=== PATIENT | female | born 1975 | race Caucasian/White ===

== ENCOUNTER 2020-08-01 09:44 | Emergency (ER) | payer MEDICAID ==
[~2020-08-01] VITALS: Ht 152.4 cm; Wt 64.0 kg
[2020-08-01 09:47] VITALS: BP 116/57
--- NOTE | 2020-08-01 10:10 | NUR ---
44 YO/F PRESENTS TO ED FOR RUQ ABD PAIN THAT RADIATES TO BACK 10/10 ACCOMPANIED BY NAUSEA AND SOB X 3 DAY. PT REPORTS THIS HAPPENED AFTER CONSUMING 6 BEERS ON THURSDAY. DENIES SICK CONTACTS. DENIES FEVER, DIARRHEA OR CONSTIPATION. PT REPORTS PAINFUL URINATION X 1 MONTH. IN ED, VSS. CLEAR BREATH SOUNDS ON ALL LUNG PALMER. ABDOMEN, SOFT, NONTENDER. NORMOACTIVE BOWEL SOUNDS. ERMD MADE AWARE OF PT STATUS. LMP: JULY 17, 2020 [facility]- DENIES NKDA RX- TYLENOL
[2020-08-01] MEDS ORDERED: FAMOTIDINE 20 MG TAB PO ONE (10:15)
[2020-08-01] MEDS ORDERED: KETOROLAC 60 MG/2 ML VIAL IM ONE (10:15)
[2020-08-01] MEDS ORDERED: ONDANSETRON 4 MG ODT PO ONE (10:15)
[2020-08-01 10:32] LABS: BASOPHILS % (AUTO) 0.4 % (0.0-2.0); EOSINOPHILS # (AUTO) 0.1 K/uL (0-0.4); EOSINOPHILS % (AUTO) 1.8 % (0.0-4.0); HEMATOCRIT 32.1 % (36-48); HEMOGLOBIN 10.9 g/dL (12.0-16.0); LYMPHOCYTES # (AUTO) 2.1 K/uL (2.5-16.5); LYMPHOCYTES % (AUTO) 41.6 % (20.5-51.1); MEAN CORPUSCULAR HEMOGLOBIN 26 pg (27-31); MEAN CORPUSCULAR HGB CONC 34 g/dL (33-37); MEAN CORPUSCULAR VOLUME 78.1 fL (80-94); MONOCYTES # (AUTO) 0.5 K/uL (0.8-1.0); MONOCYTES % (AUTO) 9.1 % (1.7-9.3); NEUTROPHILS # (AUTO) 2.4 K/uL (1.8-7.7); NEUTROPHILS % (AUTO) 47.1 % (42.2-75.2); PLATELET COUNT (AUTO) 225 K/uL (140-450); RED BLOOD CELL COUNT(AUTO) 4.11 MIL/uL (4.20-5.40); RED CELL DISTRIBUTION WIDTH 16.6 % (11.6-13.7)
[2020-08-01 12:10] LABS: ANION GAP 14.8 (8-16); CARBON DIOXIDE 26.6 mmol/L (21-32); POTASSIUM 3.4 mmol/L (3.5-5.1)
[2020-08-01 12:11] LABS: ALBUMIN 3.6 g/dL (3.4-5.0); CREATININE 0.5 mg/dL (0.6-1.3); TOTAL BILIRUBIN 0.5 mg/dL (0.0-1.0)
[2020-08-01 12:17] LABS: APPEARANCE,URINE CLEAR (CLEAR); BILIRUBIN,URINE NEGATIVE (NEGATIVE); BLOOD, URINE NEGATIVE (NEGATIVE); COLOR,URINE YELLOW (YELLOW); LEUKOCYTE ESTERASE ,URINE NEGATIVE (NEGATIVE); NITRITE, URINE NEGATIVE (NEGATIVE); UGLUCOSE NEGATIVE (NEGATIVE)
--- NOTE | 2020-08-01 13:14 | NUR ---
US tech at bedside.
[2020-08-01] MEDS ORDERED: FAMO-92 PO (14:21)
[2020-08-01] MEDS ORDERED: ONDA-24 PO (14:21)
[2020-08-01 14:42] VITALS: BP 116/57
--- NOTE | 2020-08-01 14:43 | NUR ---
Patient discharged with v/s stable. Written and verbal after care instructions given and explained. Patient alert, oriented and verbalized understanding of instructions. Ambulatory with steady gait. All questions addressed prior to discharge. ID band removed. Patient advised to follow up with PMD. Rx of FAMOTIDINE, ONDANSTERON given. Patient educated on indication of medication including possible reaction and side effects. Opportunity to ask questions provided and answered.
== END 2020-08-01 14:43 | disposition home or self-care (01) ==
LOC: MED 09:44
DX: K29.70 Gastritis, unspecified, without bleeding (principal); R11.0 Nausea; R30.0 Dysuria; Z79.899 Other long term (current) drug therapy; Z90.49 Acquired absence of other specified parts of digestive tract
CPT/HCPCS: 36415; 76705; 80053; 81003; 81025; 83690; 85025; 87086; 96372; 99284; J1885; Q0162; 81002

== ENCOUNTER 2022-12-09 21:46 | Emergency (ER) | payer MEDICAID ==
[~2022-12-09] VITALS: Ht 139.7 cm; Wt 64.0 kg
[~2022-12-09 21:46] MED LIST: FAMO-92 PO; ONDA-188 PO
[2022-12-09 22:28] VITALS: BP 146/96; PULSE 94; RESP 16; TEMP 98.4; O2SAT 100
[2022-12-09 23:49] LABS: APPEARANCE,URINE CLOUDY (CLEAR); BILIRUBIN,URINE NEGATIVE (NEGATIVE); BLOOD, URINE 3+ (NEGATIVE); COLOR,URINE RED (YELLOW); LEUKOCYTE ESTERASE ,URINE TRACE (NEGATIVE); NITRITE, URINE NEGATIVE (NEGATIVE); PROTEIN,URINE 2+ (NEGATIVE); UGLUCOSE NEGATIVE (NEGATIVE); UROBILINOGEN,URINE 0.2 EU/dL (0.2 - 1)
[2022-12-09 23:51] LABS: BACTERIA,URINE FEW /HPF (None Seen); MUCUS,URINE 1+ /LPF (None Seen); RBC,URINE TOO NUMEROUS TO COUN /HPF (0-5); SQUAMOUS EPITHELIAL CELL,UR 0-3 (FEW) /LPF (0-3 (FEW))
[2022-12-10] MEDS: ACETAMINOPHEN EXTRA STRENGTH 500 MG TAB PO ONE (00:03)
[2022-12-10] MEDS: cephALEXin 500 MG CAP PO ONE (00:04)
[2022-12-10] MEDS: KETOROLAC 30 MG/ML VIAL IM ONE (00:05)
[2022-12-10] MEDS ORDERED: CEPH-588 PO (00:10)
[2022-12-10 00:56] VITALS: BP 138/86; PULSE 89; RESP 18; TEMP 98.6; O2SAT 100
== END 2022-12-10 00:58 | disposition home or self-care (01) ==
LOC: MED 21:46
DX: N30.80 Other cystitis without hematuria (principal); R03.0 Elevated blood-pressure reading, without diagnosis of hypertension; Z79.899 Other long term (current) drug therapy
CPT/HCPCS: 81001; 81025; 87086; 96372; 99283; J1885

== ENCOUNTER 2023-06-02 11:16 | Emergency (ER) | payer OTHER ==
[~2023-06-02] VITALS: Ht 144.8 cm; Wt 66.7 kg
[~2023-06-02 11:16] MED LIST changes: +BEN10 PO; +CEPH-588 PO
[2023-06-02 11:23] VITALS: BP 133/92; PULSE 77; RESP 16; TEMP 98.2; O2SAT 98
[2023-06-02] MEDS: IBUPROFEN 600 MG TAB PO ONE (15:03)
[2023-06-02] MEDS: ACETAMINOPHEN 325 MG TAB PO ONE (15:04)
[2023-06-02 16:30] VITALS: BP 130/90; PULSE 70; RESP 16; TEMP 98; O2SAT 98
[2023-06-02] MEDS ORDERED: IBUP-2218 PO (17:31)
[2023-06-02] MEDS ORDERED: CEPH-588 PO (17:31)
== END 2023-06-02 17:34 | disposition home or self-care (01) ==
LOC: MED 11:16
DX: I80.01 Phlebitis and thrombophlebitis of superficial vessels of right lower extremity (principal); R22.41 Localized swelling, mass and lump, right lower limb; Z79.899 Other long term (current) drug therapy
CPT/HCPCS: 93971; 99284; Q0092

== ENCOUNTER 2023-06-29 07:59 | Emergency (ER) | payer OTHER ==
[~2023-06-29] VITALS: Ht 129.5 cm; Wt 64.0 kg
[~2023-06-29 07:59] MED LIST changes: +IBUP-2218 PO
[2023-06-29 08:04] VITALS: BP 139/88; PULSE 86; RESP 18; TEMP 97.1; O2SAT 99
[2023-06-29] MEDS: ACETAMINOPHEN 325 MG TAB PO ONE (09:01)
[2023-06-29] MEDS: FAMOTIDINE 20 MG TAB PO ONE (09:02)
[2023-06-29] MEDS: ONDANSETRON 4 MG ODT PO ONE (09:02)
[2023-06-29 09:15] LABS: BASOPHILS % (AUTO) 0.1 % (0.0-2.0); EOSINOPHILS % (AUTO) 0.3 % (0.0-4.0); HEMOGLOBIN 11.6 g/dL (12.0-16.0); LYMPHOCYTES # (AUTO) 1.1 K/uL (2.5-16.5); LYMPHOCYTES % (AUTO) 13.9 % (20.5-51.1); MEAN CORPUSCULAR HEMOGLOBIN 25 pg (27-31); MEAN CORPUSCULAR HGB CONC 33 g/dL (33-37); MEAN CORPUSCULAR VOLUME 75.8 fL (80-94); MONOCYTES # (AUTO) 0.3 K/uL (0.8-1.0); MONOCYTES % (AUTO) 3.7 % (1.7-9.3); NEUTROPHILS # (AUTO) 6.7 K/uL (1.8-7.7); PLATELET COUNT (AUTO) 235 K/uL (140-450); RED BLOOD CELL COUNT(AUTO) 4.62 MIL/uL (4.20-5.40); RED CELL DISTRIBUTION WIDTH 16.6 % (11.6-13.7); WHITE BLOOD COUNT (AUTO) 8.2 K/uL (4.8-10.8)
[2023-06-29 09:30] LABS: ANION GAP 12.1 (8-16); CALCIUM 8.5 mg/dL (8.5-10.1); CREATININE 0.6 mg/dL (0.6-1.3); POTASSIUM 3.1 mmol/L (3.5-5.1)
[2023-06-29 09:33] LABS: ALBUMIN 3.5 g/dL (3.4-5.0); BILIRUBIN,DIRECT 0.1 mg/dL (0.0-0.3); TOTAL BILIRUBIN 0.5 mg/dL (0.0-1.0); TOTAL PROTEIN, SERUM 6.7 g/dL (6.4-8.2)
[2023-06-29] MEDS: POTASSIUM CHLORIDE 20% 40 MEQ/15 ML UDC PO ONE (10:52)
[2023-06-29 10:57] VITALS: BP 105/79; PULSE 71; RESP 20; TEMP 98; O2SAT 100
== END 2023-06-29 10:57 | disposition home or self-care (01) ==
LOC: MED 07:59
DX: K29.70 Gastritis, unspecified, without bleeding (principal); E87.6 Hypokalemia; R03.0 Elevated blood-pressure reading, without diagnosis of hypertension; Z90.49 Acquired absence of other specified parts of digestive tract; Z79.1 Long term (current) use of non-steroidal anti-inflammatories (NSAID); Z79.899 Other long term (current) drug therapy
CPT/HCPCS: 36415; 80048; 80076; 81002; 81025; 83690; 85025; 99284; Q0162